=== PATIENT | female | born 1970 | race Caucasian/White ===

== ENCOUNTER 2016-07-05 14:59 | Inpatient (IN) | payer MEDICARE ==
[2016-07-05 16:09] VITALS: BMI 23.3
--- NOTE | 2016-07-05 17:26 | HP ---
CIWA Score - CIWA Score Nausea/Vomitin Muscle Tremors: 3 Anxiety: 3 Agitation: 3 Paroxysmal Sweats: 1-Minimal Palms Moist Orientation: 0-Oriented Tacttile Disturbances: 2-Mild Itch/Numbness/Burn Auditory Disturbances: 2-Mild Harshness/Frighten Visual Disturbances: 2-Mild Sensitivity Headache: 2-Mild CIWA-Ar Total Score: 21 Admission ROS BHS - HPI Chief Complaint: I NEED HELP TO STOP DRINKING ALCOHOL Allergies/Adverse Reactions: Allergies Allergy/AdvReac Type Severity Reaction Status Date / Time No Known Allergies Allergy Verified 10/27/15 11:28 History of Present Illness: THIS 46 YEARS OLD FEMALE WITH ALCOHOL DEPENDENCE,WITHDRAWAL SYMPTOM,LAST DETOX 10/27/15 TO 10/31/15 COLITIS REAED AT [facility] SPRAIN OF RIGHT ANKLE HYPERTENSION NO MEDICATION ANXIETY AND DEPRESSION LONGEST PERIOD OF SOBRIETY 6 MONTHS Exam Limitations: No Limitations - Ebola screening Have you traveled outside of the country in the last 21 days: No Have you had contact with anyone from an Ebola affected area: No Have you been sick,other than usual withdrawal symptoms: No Do you have a fever: No - Review of Systems Constitutional: Loss of Appetite, Malaise, Night Sweats, Changes in sleep, Weakness, Unintentional Wgt. Loss EENT: reports: Nose Congestion Respiratory: reports: No Symptoms reported Cardiac: reports: No Symptoms Reported GI: reports: Nausea, Vomiting, Indigestion, Abdominal cramping : reports: No Symptoms Reported Musculoskeletal: reports: Back Pain, Muscle Pain Integumentary: reports: Dryness Neuro: reports: Tremors Endocrine: reports: No Symptoms Reported Hematology: reports: No Symptoms Reported Psychiatric: reports: Anxious, Depressed Patient History - Patient Medical History Hx Anemia: No Hx Asthma: No Hx Chronic Obstructive Pulmonary Disease (COPD): No Hx Cancer: No Hx Cardiac Disorders: No Hx Congestive Heart Failure: No Hx Hypertension: Yes (no meds) Hx Hypercholesterolemia: No Hx Pacemaker: No HX Cerebrovascular Accident: No Hx Seizures: No Hx Dementia: No Hx Diabetes: No Hx Gastrointestinal Disorders: Yes (history pancreatitis 08/2014- in icu) Hx Liver Disease: No Hx Genitourinary Disorders: No Hx Sexually Transmitted Disorders: No Hx Renal Disease (ESRD): No Hx Thyroid Disease: No Hx Human Immunodeficiency Virus (HIV): No Hx Hepatitis C: No Hx Depression: Yes (ANXIETY AND DEPRESSION) Hx Suicide Attempt: No Hx Bipolar Disorder: No Hx Schizophrenia: No Other Medical History: NO SUICIDAL,NO HOMICIDAL - Patient Surgical History Past Surgical History: Yes Hx Neurologic Surgery: No Hx Cataract Extraction: No Hx Cardiac Surgery: No Hx Lung Surgery: No Hx Breast Surgery: No Hx Breast Biopsy: No Hx Abdominal Surgery: No Hx Appendectomy: No Hx Cholecystectomy: No Hx Genitourinary Surgery: No Hx Section: No Hx Orthopedic Surgery: Yes (spinal surgery - fusion - 2009 - ) Hx Hysterectomy: No - PPD History Previous Implant?: Yes Documented Results: Negative w/proof Implanted On Prior [facility] Admission?: Yes Date: 07/30/15 Results: 0 MM PPD to be Administered?: No - Reproductive History Patient is a Female of Child Bearing Age (11 -55 yrs old): Yes Last Menstrual Period: 06/28/16 Patient : No - Smoking Cessation Smoking history: Never smoked Have you smoked in the past 12 months: No Hx Chewing Tobacco Use: No - Substance & Tx. History Hx Alcohol Use: Yes Hx Substance Use: No Substance Use Type: Alcohol Hx Substance Use Treatment: Yes (0510/27/15 TO 10/31/15) - Substances Abused Alcohol Route: Oral Frequency: Daily Amount used: 1PINT OF VODKA Age of first use: 31 Date of Last Use: 07/04/16 Family Disease History - Family Disease History Family Disease History: Other: Father (alcohol, liver problem, ) Admission Physical Exam BHS - Vital Signs Vital Signs: Vital Signs - 24 hr 07/05/16 15:58 Temperature 100.0 F H Pulse Rate 101 H Respiratory 20 Rate Blood Pressure 117/74 - Physical General Appearance: Yes: Moderate Distress, Tremorous, Irritable, Sweating, Anxious HEENTM: Yes: Rhinorrhea Respiratory: Yes: Lungs Clear Neck: Yes: Within Normal Limits Breast: Yes: Breast Exam Deferred Cardiology: Yes: Within Normal Limits, Regular Rhythm, Regular Rate, S1, S2 Abdominal: Yes: Within Normal Limits, Normal Bowel Sounds, Non Tender, Flat, Soft Genitourinary: Yes: Within Normal Limits Back: Yes: Muscle Spasm Musculoskeletal: Yes: Back pain, Muscle Pain 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, Fully Oriented, Alert, Motor Strength 5/5 Integumentary: Yes: Dry Lymphatic: Yes: Within Normal Limits - Diagnostic (1) Nicotine dependence Current Visit: No Status: Acute Qualifiers: Nicotine product type: cigarettes Substance use status: uncomplicated Qualified Code(s): F17.210 - Nicotine dependence, cigarettes, uncomplicated (2) Alcohol dependence with uncomplicated withdrawal Current Visit: No Status: Chronic (3) HTN (hypertension) Current Visit: No Status: Chronic Qualifiers: Hypertension type: essential hypertension Qualified Code(s): I10 - Essential (primary) hypertension (4) Left rib fracture Current Visit: No Status: Chronic Qualifiers: Encounter type: subsequent encounter Rib fracture type: multiple ribs Fracture type: closed Fracture healing: with routine healing Qualified Code(s): S22.42XD - Multiple fractures of ribs, left side, subsequent encounter for fracture with routine healing (5) Anxiety and depression Current Visit: Yes Status: Acute (6) Syncope Current Visit: Yes Status: Acute (7) Right ankle sprain Current Visit: Yes Status: Acute (8) Pancreatitis Current Visit: Yes Status: Acute (9) Colitis Current Visit: Yes Status: Acute (10) History of pancreatitis Current Visit: Yes Status: Acute (11) History of back surgery Current Visit: Yes Status: Acute Cleared for Admission [facility] - Detox or Rehab [facility] Level of Care: Medically Managed Detox Regimen/Protocol: Librium S Breath Alcohol Content Breath Alcohol Content: 0.225 Urine Drug Screen - Results Drug Screen Negative: Yes
[2016-07-05] MEDS ORDERED: chlordiazePOXIDE HCL 25 MG CAPSULE PO PRN (17:44)
[2016-07-05] MEDS ORDERED: diphenhydrAMINE HCL 50 MG CAPSULE PO PRN (17:44)
[2016-07-05] MEDS ORDERED: chlordiazePOXIDE HCL 25 MG CAPSULE PO ONE (17:44)
[2016-07-05] MEDS ORDERED: MENTHOL/PHENOL 1 EACH UD MM PRN (17:44)
[2016-07-05] MEDS ORDERED: P-EPHED 60MG/TRIPROLIDI 2.5MG TABLET PO PRN (17:44)
[2016-07-05] MEDS ORDERED: hydrOXYzine PAMOATE 25 MG CAPSULE (FP) PO PRN (17:44)
[2016-07-05] MEDS ORDERED: LOPERAMIDE HCL 2 MG CAPSULE PO PRN (17:44)
[2016-07-05] MEDS ORDERED: MAGNESIUM HYDROX 2400MG/30ML ORAL SUSPENSION 30 ML CUP PO PRN (17:44)
[2016-07-05] MEDS ORDERED: MAGNESIUM CITRATE 300 ML BOTTLE PO PRN (17:44)
[2016-07-05] MEDS ORDERED: MAG HYDROX/AL HYDROX/SIMETH 30 ML UNIT-DOSE CUP PO PRN (17:44)
[2016-07-05] MEDS: ACETAMINOPHEN 325 MG TABLET (FP) PO PRN (18:52)
[2016-07-05] MEDS: THIAMINE HCL 100 MG TABLET (FP) PO SCH (22:21)
[2016-07-05] MEDS: chlordiazePOXIDE HCL 25 MG CAPSULE PO SCH (22:22)
[2016-07-06] MEDS: chlordiazePOXIDE HCL 25 MG CAPSULE PO SCH ×4 (05:24→22:13)
[2016-07-06] MEDS: ACETAMINOPHEN 325 MG TABLET (FP) PO PRN (08:50)
[2016-07-06] MEDS: PRENATAL VITAMINS W/ FOLIC ACID TABLET (FP) PO SCH (10:19)
[2016-07-06 10:35] LABS: URINE APPEARANCE CLEAR; URINE BLOOD NEGATIVE (NEGATIVE); URINE COLOR AMBER; URINE GLUCOSE (UA) 2+ (NEGATIVE); URINE KETONE NEGATIVE (NEGATIVE); URINE LEUK ESTERASE NEGATIVE (NEGATIVE); URINE NITRITE NEGATIVE (NEGATIVE); URINE UROBILINOGEN 4.0 E.U/dl E.U./dl (0.2-1.0)
--- NOTE | 2016-07-06 10:35 | PN ---
BHS CIWA - CIWA Score Nausea/Vomitin Muscle Tremors: 3 Anxiety: 3 Agitation: 3 Paroxysmal Sweats: 1-Minimal Palms Moist Orientation: 0-Oriented Tacttile Disturbances: 1-Very Mild Itch/Numbness Auditory Disturbances: 1-Very Mild Visual Disturbances: 1-Very Mild Sensitivity Headache: 2-Mild CIWA-Ar Total Score: 18 BHS Progress Note (SOAP) Subjective: alert,irritable,anxious,interrupted sleep,tremor,nausea Objective: 07/06/16 10:33 Vital Signs Temperature 100.2 F H 07/06/16 09:25 Pulse Rate 108 H 07/06/16 09:25 Respiratory Rate 18 07/06/16 09:25 Blood Pressure 120/77 07/06/16 09:25 O2 Sat by Pulse Oximetry (%) ekg nsr labs pending Assessment: 07/06/16 10:34 withdrawal symptom Plan: continue detox
[2016-07-06 10:36] LABS: MCH 34.7 pg (25.7-33.7); MCHC 33.2 g/dl (32.0-36.0); MEAN CELL VOLUME 104.4 fl (80-96); MEAN PLT VOLUME 9.6 fl (7.5-11.1); PLATELET COUNT 65 K/MM3 (134-434); RDW 14.1 % (11.6-15.6)
[2016-07-06 10:37] LABS: ALBUMIN 3.4 g/dl (3.4-5.0); CALCIUM 8.6 mg/dL (8.5-10.1)
[2016-07-06 10:42] LABS: ALK PHOS 139 U/L (45-117); ANION GAP 11 (8-16); BILIRUBIN,TOTAL 1.2 mg/dL (0.2-1.0); CO2 31 mmol/L (21-32); CREATININE 0.6 mg/dL (0.55-1.02); GLUCOSE,RANDOM 117 mg/dL (74-106); SGOT/AST 298 U/L (15-37); SGPT/ALT 103 U/L (12-78)
[2016-07-06 10:56] LABS: WHITE BLOOD COUNT 1.9 K/mm3 (4.0-10.0)
[2016-07-06 11:13] LABS: URINE PROTEIN 2+ (NEGATIVE)
[2016-07-06 11:16] LABS: URINE BACTERIA RARE /hpf (NONE SEEN); URINE MUCUS MANY; URINE RBC 2 /hpf (0-3); URINE WBC 1 /hpf (3-5)
[2016-07-06] MEDS ORDERED: POTASSIUM CHLORIDE TABS 20 MEQ TABLET.ER (FP) PO ONE (17:24)
[2016-07-06] MEDS: IBUPROFEN 400 MG TABLET (FP) PO PRN (17:36)
--- NOTE | 2016-07-06 17:43 | PN ---
[facility] Progress Note Note: running temp 100.2 Laboratory Last Values WBC 1.9 K/mm3 (4.0-10.0) L D 07/06/16 07:45 RBC 3.31 M/mm3 (3.60-5.2) L 07/06/16 07:45 Hgb 11.5 GM/dL (10.7-15.3) D 07/06/16 07:45 Hct 34.5 % (32.4-45.2) 07/06/16 07:45 MCV 104.4 fl (80-96) H 07/06/16 07:45 MCHC 33.2 g/dl (32.0-36.0) 07/06/16 07:45 RDW 14.1 % (11.6-15.6) 07/06/16 07:45 Plt Count 65 K/MM3 (134-434) L D 07/06/16 07:45 MPV 9.6 fl (7.5-11.1) 07/06/16 07:45 Sodium 135 mmol/L (136-145) L 07/06/16 07:45 Potassium 3.2 mmol/L (3.5-5.1) L D 07/06/16 07:45 Chloride 93 mmol/L (98-107) L 07/06/16 07:45 Carbon Dioxide 31 mmol/L (21-32) 07/06/16 07:45 Anion Gap 11 (8-16) 07/06/16 07:45 BUN 10 mg/dL (7-18) D 07/06/16 07:45 Creatinine 0.6 mg/dL (0.55-1.02) 07/06/16 07:45 Creat Clearance w eGFR > 60 (>60) 07/06/16 07:45 Random Glucose 117 mg/dL (74-106) H 07/06/16 07:45 Calcium 8.6 mg/dL (8.5-10.1) 07/06/16 07:45 Total Bilirubin 1.2 mg/dL (0.2-1.0) H 07/06/16 07:45 AST 298 U/L (15-37) H D 07/06/16 07:45 ALT 103 U/L (12-78) H D 07/06/16 07:45 Alkaline Phosphatase 139 U/L (45-117) H 07/06/16 07:45 Total Protein 7.0 g/dl (6.4-8.2) 07/06/16 07:45 Albumin 3.4 g/dl (3.4-5.0) 07/06/16 07:45 Urine Color [place] 07/06/16 07:45 Urine Appearance Clear 07/06/16 07:45 Urine pH 6.0 (5.0-8.0) 07/06/16 07:45 Ur Specific [place] 1.033 (1.001-1.035) 07/06/16 07:45 Urine Protein 2+ (NEGATIVE) H 07/06/16 07:45 Urine Glucose (UA) 2+ (NEGATIVE) H 07/06/16 07:45 Urine Ketones Negative (NEGATIVE) 07/06/16 07:45 Urine Blood Negative (NEGATIVE) 07/06/16 07:45 Urine Nitrite Negative (NEGATIVE) 07/06/16 07:45 Urine Bilirubin 2.0 (NEGATIVE) 07/06/16 07:45 Urine Urobilinogen 4.0 e.u/dl E.U./dl (0.2-1.0) H 07/06/16 07:45 Ur Leukocyte Esterase Negative (NEGATIVE) 07/06/16 07:45 Urine RBC 2 /hpf (0-3) 07/06/16 07:45 Urine WBC 1 /hpf (3-5) 07/06/16 07:45 Ur Epithelial Cells Few /hpf (FEW) 07/06/16 07:45 Urine Bacteria Rare /hpf (NONE SEEN) 07/06/16 07:45 Urine Mucus Many 07/06/16 07:45 RPR Titer Nonreactive (NONREACTIVE) 07/06/16 07:45 leukopenia,thrombocytopenia probably from chronic alcohol dependence alt 103.ast 298 transaminasemia will d/c tylenol,repeat cbc with diff,cmp,inr,amylase,lipase,alt,ast in am hypokalemia k is 3.2 kdur 20 meq now then bid chest,fua on thursday07/08/16 close monitoring,encourage oral fluid,continue detox
[2016-07-06] MEDS: POTASSIUM CHLORIDE TABS 20 MEQ TABLET.ER (FP) PO SCH (22:14)
[2016-07-06] MEDS: THIAMINE HCL 100 MG TABLET (FP) PO SCH (22:14)
--- NOTE | 2016-07-07 00:47 | EKG ---
Test Reason : Blood Pressure : / mmHG Vent. Rate : 092 BPM Atrial Rate : 092 BPM P-R Int : 140 ms QRS Dur : 076 ms QT Int : 360 ms P-R-T Axes : 048 016 033 degrees QTc Int : 445 ms NORMAL SINUS RHYTHM POSSIBLE LEFT ATRIAL ENLARGEMENT BORDERLINE ECG NO PREVIOUS ECGS AVAILABLE Confirmed by JODI QUINTERO MD ([id number]) on 07/07/2016 12:47:29 AM Referred By: Confirmed By:JODI QUINTERO MD
[2016-07-07] MEDS: chlordiazePOXIDE HCL 25 MG CAPSULE PO SCH ×3 (05:26→17:36)
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
[2016-07-07 10:15] LABS: BASOPHIL 1.1 % (0-2.0); EOSINOPHIL 1.6 % (0-4.5); MEAN PLT VOLUME 10.1 fl (7.5-11.1); NEUTROPHILS 63.3 % (42.8-82.8); PLATELET COUNT 59 K/MM3 (134-434); RDW 13.6 % (11.6-15.6)
[2016-07-07 10:17] LABS: ALBUMIN 3.2 g/dl (3.4-5.0); ALK PHOS 145 U/L (45-117); ANION GAP 10 (8-16); BILIRUBIN,TOTAL 1.4 mg/dL (0.2-1.0); CALCIUM 8.9 mg/dL (8.5-10.1); CO2 30 mmol/L (21-32); CREATININE 0.6 mg/dL (0.55-1.02); GLUCOSE,RANDOM 123 mg/dL (74-106); SGOT/AST 382 U/L (15-37); SGPT/ALT 159 U/L (12-78); TOT PROT 6.8 g/dl (6.4-8.2)
[2016-07-07] MEDS: PRENATAL VITAMINS W/ FOLIC ACID TABLET (FP) PO SCH (10:29)
[2016-07-07] MEDS: POTASSIUM CHLORIDE TABS 20 MEQ TABLET.ER (FP) PO SCH ×2 (10:29→22:19)
[2016-07-07 10:35] LABS: INR 1.25 (0.82-1.09); PROTHROMBIN TIME (PATIENT) 13.8 SEC (9.98-11.88)
--- NOTE | 2016-07-07 11:38 | PN ---
S CIWA - CIWA Score Nausea/Vomitin Muscle Tremors: 3 Anxiety: 2 Agitation: 2 Paroxysmal Sweats: 1-Minimal Palms Moist Orientation: 0-Oriented Tacttile Disturbances: 1-Very Mild Itch/Numbness Auditory Disturbances: 1-Very Mild Visual Disturbances: 1-Very Mild Sensitivity Headache: 2-Mild CIWA-Ar Total Score: 16 S Progress Note (SOAP) Subjective: ALERT,IRRITABLE,ANXIOUS,INTERRUPTED SLEEP,TREMOR Objective: 07/07/16 11:34 Vital Signs Temperature 97.1 F L 07/07/16 10:00 Pulse Rate 120 H 07/07/16 10:00 Respiratory Rate 18 07/07/16 10:00 Blood Pressure 117/90 07/07/16 10:00 O2 Sat by Pulse Oximetry (%) Laboratory Last Values WBC 2.0 K/mm3 (4.0-10.0) L 07/07/16 08:00 RBC 3.41 M/mm3 (3.60-5.2) L 07/07/16 08:00 Hgb 12.0 GM/dL (10.7-15.3) 07/07/16 08:00 Hct 35.2 % (32.4-45.2) 07/07/16 08:00 MCV 103.0 fl (80-96) H 07/07/16 08:00 MCHC 34.0 g/dl (32.0-36.0) 07/07/16 08:00 RDW 13.6 % (11.6-15.6) 07/07/16 08:00 Plt Count 59 K/MM3 (134-434) L 07/07/16 08:00 MPV 10.1 fl (7.5-11.1) 07/07/16 08:00 Neutrophils % 63.3 % (42.8-82.8) 07/07/16 08:00 Lymphocytes % 22.1 % (8-40) 07/07/16 08:00 Monocytes % 11.9 % (3.8-10.2) H 07/07/16 08:00 Eosinophils % 1.6 % (0-4.5) 07/07/16 08:00 Basophils % 1.1 % (0-2.0) 07/07/16 08:00 INR 1.25 (0.82-1.09) H 07/07/16 08:00 Sodium 137 mmol/L (136-145) 07/07/16 08:00 Potassium 3.9 mmol/L (3.5-5.1) D 07/07/16 08:00 Chloride 97 mmol/L (98-107) L 07/07/16 08:00 Carbon Dioxide 30 mmol/L (21-32) 07/07/16 08:00 Anion Gap 10 (8-16) 07/07/16 08:00 BUN 9 mg/dL (7-18) 07/07/16 08:00 Creatinine 0.6 mg/dL (0.55-1.02) 07/07/16 08:00 Creat Clearance w eGFR > 60 (>60) 07/07/16 08:00 Random Glucose 123 mg/dL (74-106) H 07/07/16 08:00 Calcium 8.9 mg/dL (8.5-10.1) 07/07/16 08:00 Total Bilirubin 1.4 mg/dL (0.2-1.0) H 07/07/16 08:00 AST 382 U/L (15-37) H D 07/07/16 08:00 ALT 159 U/L (12-78) H D 07/07/16 08:00 Alkaline Phosphatase 145 U/L (45-117) H 07/07/16 08:00 Total Protein 6.8 g/dl (6.4-8.2) 07/07/16 08:00 Albumin 3.2 g/dl (3.4-5.0) L 07/07/16 08:00 Total Amylase 37 U/L (25-115) 07/07/16 08:00 Lipase 76 U/L (73-393) 07/07/16 08:00 Urine Color [place] 07/06/16 07:45 Urine Appearance Clear 07/06/16 07:45 Urine pH 6.0 (5.0-8.0) 07/06/16 07:45 Ur Specific [place] 1.033 (1.001-1.035) 07/06/16 07:45 Urine Protein 2+ (NEGATIVE) H 07/06/16 07:45 Urine Glucose (UA) 2+ (NEGATIVE) H 07/06/16 07:45 Urine Ketones Negative (NEGATIVE) 07/06/16 07:45 Urine Blood Negative (NEGATIVE) 07/06/16 07:45 Urine Nitrite Negative (NEGATIVE) 07/06/16 07:45 Urine Bilirubin 2.0 (NEGATIVE) 07/06/16 07:45 Urine Urobilinogen 4.0 e.u/dl E.U./dl (0.2-1.0) H 07/06/16 07:45 Ur Leukocyte Esterase Negative (NEGATIVE) 07/06/16 07:45 Urine RBC 2 /hpf (0-3) 07/06/16 07:45 Urine WBC 1 /hpf (3-5) 07/06/16 07:45 Ur Epithelial Cells Few /hpf (FEW) 07/06/16 07:45 Urine Bacteria Rare /hpf (NONE SEEN) 07/06/16 07:45 Urine Mucus Many 07/06/16 07:45 RPR Titer Nonreactive (NONREACTIVE) 07/06/16 07:45 Assessment: 07/07/16 11:35 WITHDRAWAL SYMPTOM Plan: CONTINUE DETOX,LEUKOPENIA,THROMBOCYTOPENIA,TRANSAMINASEMIA,INR 1.25 REPEAT ALT,AST,INR IN AM
[2016-07-07] MEDS: guaiFENesin/D-METHORPHAN HB 10 ML UNIT-DOSE CUPS PO PRN (14:49)
[2016-07-07] MEDS: IBUPROFEN 400 MG TABLET (FP) PO PRN (17:36)
[2016-07-07] MEDS: THIAMINE HCL 100 MG TABLET (FP) PO SCH (22:19)
[2016-07-07] MEDS: chlordiazePOXIDE 5 MG CAPSULE PO SCH (22:19)
[2016-07-08] MEDS: chlordiazePOXIDE 5 MG CAPSULE PO SCH (05:58)
[2016-07-08] MEDS: IBUPROFEN 400 MG TABLET (FP) PO PRN (05:59)
[2016-07-08] MEDS: guaiFENesin/D-METHORPHAN HB 10 ML UNIT-DOSE CUPS PO PRN (06:01)
--- NOTE | 2016-07-08 09:07 | DS ---
[facility] Detox Discharge Summary Admission Date: 07/05/16 Discharge Date: 07/08/16 - History Present History: Alcohol Dependence - Physical Exam Results Vital Signs: Vital Signs Temperature 98.2 F 07/08/16 07:10 Pulse Rate 92 H 07/08/16 06:00 Respiratory Rate 18 07/08/16 06:00 Blood Pressure 101/65 07/08/16 06:00 O2 Sat by Pulse Oximetry (%) - Treatment Hospital Course: Detox Protocol Followed, Detoxed Safely, Responded well, Discharged Condition Good - Medication Discharge Medications: Ambulatory Orders Unobtainable [Unobtainable] 07/05/16 - Diagnosis (1) Alcohol dependence with uncomplicated withdrawal Current Visit: Yes Status: Chronic (2) Anxiety and depression Current Visit: Yes Status: Chronic (3) History of pancreatitis Current Visit: Yes Status: Acute (4) Nicotine dependence Current Visit: Yes Status: Chronic Qualifiers: Nicotine product type: cigarettes Substance use status: uncomplicated Qualified Code(s): F17.210 - Nicotine dependence, cigarettes, uncomplicated (5) Right ankle sprain Current Visit: Yes Status: Chronic (6) HTN (hypertension) Current Visit: Yes Status: Chronic Qualifiers: Hypertension type: essential hypertension Qualified Code(s): I10 - Essential (primary) hypertension (7) Left rib fracture Current Visit: Yes Status: Chronic Qualifiers: Encounter type: subsequent encounter Rib fracture type: multiple ribs Fracture type: closed Fracture healing: with routine healing Qualified Code(s): S22.42XD - Multiple fractures of ribs, left side, subsequent encounter for fracture with routine healing - AMA Did Patient Leave Against Medical Advice: Yes
[2016-07-08 09:50] VITALS: BP 114/81; PULSE 120; TEMP 97.3
[2016-07-08 10:28] LABS: INR 1.24 (0.82-1.09); PROTHROMBIN TIME (PATIENT) 13.7 SEC (9.98-11.88)
[2016-07-08 10:31] LABS: SGOT/AST 248 U/L (15-37)
[2016-07-08 10:52] LABS: SGPT/ALT 145 U/L (12-78)
[2016-07-08] MEDS ORDERED: chlordiazePOXIDE HCL 10 MG CAPSULE PO SCH (23:00)
== END 2016-07-08 09:50 | disposition left against medical advice (07) | DRG 770 ==
LOC: YASAS 14:59 → Y6N 16:56
PROVIDERS: ADMIT Internal Medicine; ATTEND Internal Medicine Addiction Medicine
PROC: HZ2ZZZZ Detoxification Services for Substance Abuse Treatment (ICD-10-PCS; principal; 2016-07-05)
DX: F10.230 Alcohol dependence with withdrawal, uncomplicated (principal); F17.210 Nicotine dependence, cigarettes, uncomplicated; F41.8 Other specified anxiety disorders; R74.0 Nonspecific elevation of levels of transaminase and lactic acid dehydrogenase [LDH]; I10 Essential (primary) hypertension; D72.819 Decreased white blood cell count, unspecified; D69.6 Thrombocytopenia, unspecified; E87.6 Hypokalemia; Z98.1 Arthrodesis status; Z87.19 Personal history of other diseases of the digestive system; Z86.79 Personal history of other diseases of the circulatory system
CPT/HCPCS: 36415; 80053; 81003; 81015; 82150; 83690; 84450; 84460; 85025; 85027; 85610; 86593; 93005; 93010